=== PATIENT | female | born 1990 | race Caucasian/White ===

== ENCOUNTER 2017-03-26 06:34 | Day surgery (SDC) | payer OTHER ==
[2017-03-26 08:30] VITALS: BP 120/84; TEMP 98.3
[2017-03-26 09:35] VITALS: BMI 28.8
== END 2017-03-26 10:49 | disposition home or self-care (01) ==
LOC: L&D/OP 06:34
PROVIDERS: ATTEND Student in an Organized Health Care Education/Training Program
DX: O47.1 False labor at or after 37 completed weeks of gestation (principal); Z79.899 Other long term (current) drug therapy; Z3A.40 40 weeks gestation of pregnancy

== ENCOUNTER 2017-03-26 20:07 | Inpatient (IN) | payer OTHER ==
[2017-03-26 20:47] VITALS: BMI 28.8
[2017-03-26] MEDS ORDERED: LR / Pitocin 40 units/1000 ml 1,000 ML IV PRN (22:18)
[2017-03-26] MEDS ORDERED: Promethazine HCl 25 MG/ML VIAL IM PRN (22:18)
[2017-03-26] MEDS ORDERED: Ondansetron HCl/PF 4 MG/2 ML Vial IVP PRN (22:18)
[2017-03-26] MEDS ORDERED: Lidocaine 1% (PF) 30 ML VIAL SC PRN (22:18)
[2017-03-26] MEDS ORDERED: Misoprostol 200 MCG TAB PR PRN (22:18)
[2017-03-26] MEDS ORDERED: Lactated Ringer's 1,000 ML IV SCH (22:30)
[2017-03-26] MEDS ORDERED: Penicillin G Potassium 5 MILL.UNITS VIAL ONE (22:34)
[2017-03-26] MEDS ORDERED: Fentanyl 4 mcg/Marc 0.1% Cadd 100 ML ONE (22:43)
[2017-03-26 22:57] LABS: #Basophils 0.1 thou/uL (0.0-0.2); #Lymphocytes 1.2 thou/uL (1.20-3.40); #Monocytes 0.6 thou/uL (0.11-0.59); %Basophils 0.4 % (0.0-1.0); %Eosinophils 0.2 % (0.0-10.0); %Monocytes 3.8 % (0.0-10.0); Hematocrit 36.8 % (36.0-47.0); Mean Platelet Volume 9.4 fL (7.4-10.4); Red Blood Cell (RBC) Count 4.09 mill/uL (4.20-5.40); White Blood Cell (WBC) Count 14.9 thou/uL (4.8-10.8)
[2017-03-26] MEDS ORDERED: Dextrose 5%-Lactated Ringers 1,000 ML IV SCH (23:30)
--- NOTE | 2017-03-27 | PDOC.LDHP ---
Labor and Delivery H&P Chief complaint: contractions HPI: 26 yo @ 40.6wks by 1T US presents with contractions, without fluid loss , vaginal discharge, or bleeding. Pt was here this morning for contractions and an exam of /0. Current gestational age (weeks): 1 Due date: 03/20/17 Para: 0 Current complications: none Abnormal US findings: No Current medications: pre-syl vitamins Previous surgical history: none Allergies/Adverse Reactions: Allergies Allergy/AdvReac Type Severity Reaction Status Date / Time gluten Allergy Verified 03/26/17 08:28 No Known Drug Allergies Allergy Verified 03/26/17 08:28 Social history: none - Physical Exam Vital signs reviewed and normal: yes General: NAD Heart: RRR Lungs: nonlabored breathing Abdomen: NTTP Extremeties: no edema FHT: category 1, category 2, variable decelerations [place] contractions every: 7 minutes - Vaginal Exam cm dilated: 5 Effacement: 75% Station: 0 - OB Labs Blood type: A RH: positive HIV: negative RPR: negative HEPSAg: negative 1 hour GCT: negative GBS: positive Additional Labs: rubella immune gonorrhea negative chlamydia negative - Assessment L&D Assessment: term patient in labor - Plan Plan: admit to L&D, labor augmentation if indicated, anesthesia consult for pain management
[2017-03-27] MEDS ORDERED: Penicillin G 2.5 MILL.units 2.5 MILL.UNITS in Premix Bag 1 BAG IVPB SCH (01:00)
--- NOTE | 2017-03-27 02:43 | PDOC.LDPN ---
Labor & Delivery Progress Note - Subjective Subjective: comfortable - Objective Vital signs reviewed and normal: yes General: NAD, resting Uterine fundus: non tender Dilation: 6 Effacement: 90% Station: 1+ FHT: category 2 [place] contractions every: 4 minutes - Assessment (1) Active labor at term Code(s): [id number] - Current Visit: Yes Status: Acute Plan: continue plan of care
[2017-03-27] MEDS ORDERED: Lidocaine 1% (PF) 30 ML VIAL ONE (04:57)
[2017-03-27] MEDS ORDERED: LR / Pitocin 40 units/1000 ml 1,000 ML ONE (04:57)
[2017-03-27] MEDS ORDERED: Fentanyl 4 mcg/Marc 0.1% Cadd 100 ML ONE (04:58)
[2017-03-27] MEDS ORDERED: Misoprostol 200 MCG TAB ONE (05:55)
--- NOTE | 2017-03-27 06:44 | PDOC.OPDEL ---
OB Operative/Delivery Note Delivery Dr/Surgeon: Sharee Saenz MD, Rosangela Viera MD, Nga Garcia DO Pre-Delivery Diagnosis: other (Active labor at 40.6, Celiac Disease, Vitamin D deficiency, Anemia of , ASCUS pap) Procedure/Post Delivery Dx: spontaneous vaginal delivery Weeks gestation: 41 Anesthesia: epidural - Findings A Sex: female Weight: 2.779 kg - 5 min: 8 - 10 min: 9 - Additional Findings/Plan Placenta delivered: spontaneous Repaired Obstetrical Laceration: other (1st degree with left labial and vaginal sidewall extension) Estimated blood loss: 300 mL Compilations/Other Findings: 26 yo at 40.6 wks presented in active labor. Progressed without complications to complete on 03/27/17 at 0450. Viable female with MSAF delivered over an intact perineum at 0538 in OA position. No nuchal cord. Spontaneous cry. Pitocin was started for active management of 3rd stage. Placenta delivered spontaneously with assistance of manual traction. Complex 1st degree laceration noted and repaired with 2-[address] and 2-0 Vicryl on SH. EBL 300 mL. Fundus firm. Cervix and vagina free of other lacerations. Post delivery plan: routine recovery
[2017-03-27] MEDS ORDERED: Acetaminophen/Codeine 30-300mg Tablet PO PRN ×2 (06:52)
[2017-03-27] MEDS ORDERED: Bisacodyl 10 MG SUPP PR PRN (06:52)
[2017-03-27] MEDS ORDERED: Milk Of Magnesia 30 ML UDCUP PO PRN (06:52)
[2017-03-27] MEDS ORDERED: LR / Pitocin 40 units/1000 ml 1,000 ML IV SCH (07:00)
[2017-03-27] MEDS ORDERED: Ferrous Sulfate 325 MG TAB PO SCH (08:00)
[2017-03-27] MEDS ORDERED: diphenhydrAMINE HCl 50 MG/ML 1 ML VIAL IVP PRN (08:10)
[2017-03-27] MEDS ORDERED: Acetaminophen 325 MG TAB PO PRN (08:10)
[2017-03-27] MEDS ORDERED: Ondansetron HCl/PF 4 MG/2 ML Vial IVP PRN (08:10)
[2017-03-27] MEDS ORDERED: Naloxone HCl 0.4 mg/ml Vial IVP PRN ×2 (08:10)
[2017-03-27] MEDS ORDERED: Eucerin (Mineral Oil/Petrolatum,White) 30 gm Jar TOP PRN (08:10)
[2017-03-27] MEDS ORDERED: Promethazine HCl 25 MG/ML VIAL IM PRN (08:10)
[2017-03-27] MEDS ORDERED: Lactated Ringer's 500 ML IV PRN (08:10)
[2017-03-27] MEDS ORDERED: ePHEDrine/0.9% NaCl/PF SYRINGE 50 mg/10 ml SLOW IVP PRN (08:10)
[2017-03-27] MEDS ORDERED: Fentanyl 4mcg/Marcaine 0.1% Cassette 100 ML EPIDURAL SCH (08:15)
[2017-03-27] MEDS ORDERED: Communication Order-Pharmacy FS SCH (08:15)
[2017-03-27] MEDS: Docusate (Surfak) 240 MG CAP PO SCH ×2 (09:16→21:03)
[2017-03-27] MEDS: Prenatal Vitamin 1 TAB PO SCH (09:16)
[2017-03-27] MEDS: Ibuprofen 800 MG TAB PO SCH ×3 (09:16→17:47)
[2017-03-27] MEDS: Penicillin G Potassium 5 MILL.UNITS in Sodium Chloride 0.9% 100 ML IVPB SCH ×2 (09:35→09:44)
[2017-03-27] MEDS: HYDROcodone/Acetaminophen 5/325 mg Tablet PO PRN ×2 (13:11→23:41)
[2017-03-28 05:12] LABS: #Eosinphils 0.1 thou/uL (0.0-0.7); #Lymphocytes 2.7 thou/uL (1.20-3.40); #Monocytes 0.5 thou/uL (0.11-0.59); #Neutrophils 9.4 thou/uL (1.40-6.50); %Basophils 0.2 % (0.0-1.0); %Eosinophils 0.5 % (0.0-10.0); %Lymphocytes 21.6 % (21.0-51.0); %Monocytes 3.6 % (0.0-10.0); Hematocrit 24.8 % (36.0-47.0); Mean Platelet Volume 8.2 fL (7.4-10.4); Red Blood Cell (RBC) Count 2.71 mill/uL (4.20-5.40); White Blood Cell (WBC) Count 12.7 thou/uL (4.8-10.8)
[2017-03-28] MEDS: Ibuprofen 800 MG TAB PO SCH ×3 (05:49→21:11)
[2017-03-28] MEDS: HYDROcodone/Acetaminophen 5/325 mg Tablet PO PRN ×2 (08:19→22:47)
[2017-03-28] MEDS: Prenatal Vitamin 1 TAB PO SCH (08:19)
[2017-03-28] MEDS: Ferrous Sulfate 325 MG TAB PO SCH ×2 (08:19→18:21)
[2017-03-28] MEDS: Docusate (Surfak) 240 MG CAP PO SCH ×2 (08:19→21:10)
--- NOTE | 2017-03-28 10:10 | PDOC.PP ---
Post Progress Note Post Day #: 1 PO intake tolerated: yes Flatus: no Ambulation: yes Vital Signs (12 hours) Temp Pulse Resp BP 03/28/17 08:06 98.4 F 69 20 116/69 03/28/17 08:05 98.4 F 69 20 03/28/17 05:45 97.7 F 74 18 127/88 03/27/17 23:40 98.6 F 93 20 128/85 Weight Weight 76.204 kg - Physical Examination General: NAD Cardiovascular: no m/r/g, RRR Respiratory: clear to ausculation bilateral Abdominal: + bowel sounds, lochia (moderate), no distention, appropriately TTP Fundus firm & at: 2cm below umbilicus Extremities: negative homans (B) Skin: no rash Neurological: no gross focal deficits Psychiatric: normal affect Result Diagrams: 03/28/17 04:58 Additional Labs: Post Labs Blood Type A POSITIVE 03/26/17 21:59 Hep Bs Antigen Non-Reactive S/CO (NonReactive) 03/26/17 21:59 (1) Term delivered Code(s): O80 - ENCOUNTER FOR FULL-TERM UNCOMPLICATED DELIVERY Status: Acute Comment: 26 year old G1 at 41.0 weeks delivered via at 0538 on 03/27 a TSGA female. She was GBS positive - received 2 doses of penicillin 2nd degree perineal lac s/p repair EBL 300 -pain controlled with norco and ibuprofen -Hb dropped today to 8.3 - started iron supplementation -creative consultant saw her to help with breast feeding -continue routine post care -Likely d/c tomorrow <Nga Zendejas - Last Filed: 03/28/17 10:07> Vital Signs (12 hours) Temp Pulse Resp BP 03/28/17 08:06 98.4 F 69 20 116/69 03/28/17 08:05 98.4 F 69 20 03/28/17 05:45 97.7 F 74 18 127/88 Weight Weight 76.204 kg Result Diagrams: 03/28/17 04:58 Additional Labs: Post Labs Blood Type A POSITIVE 03/26/17 21:59 Hep Bs Antigen Non-Reactive S/CO (NonReactive) 03/26/17 21:59 <Sharee Saenz - Last Filed: 03/28/17 12:24> Attending Addendum - Attending Addendum I personally evaluated the patient and discussed the management with Dr. Zendejas I agree with the History, Examination, Assessment and Plan documented above with any addition or exceptions noted below. 26 yo female s/p at 41.0 wks complicated by GBS carrier status, MSAF, Celiac dz PPD#1 Patient doing well. Reports increased abdominal cramping overnight with improvement with use of [place]. improving. 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 Mother appears overwhelmed and tired today. Encouraged using staff to help with today so she could rest. Lochia moderate. Voiding well. Vaginal edema stable. Afebrile. VSS. Fundus firm below umbilicus. Deferred vaginal evaluation today -- patient . H/H = 8.3/24.8 Plan: Continue routine care. Encouraged assistance with staff and partner. Monitor pain control. Iron started for pp anemia. Monitor lochia. If persist will need to repeat H/H in AM to monitor need for infusion vs transfusion. Follow up vaginal laceration in AM. consult to continue to help with BF Unsure of contraception at this time. Will address in outpt setting. Michael <Sharee Saenz - Last Filed: 03/28/17 12:24>
[2017-03-28 22:08] VITALS: TEMP 98.2
[2017-03-29] MEDS: Ibuprofen 800 MG TAB PO SCH ×3 (06:46→16:20)
--- NOTE | 2017-03-29 07:02 | PDOC.PP ---
Post Progress Note Post Day #: 2 -: Patient doing well, pain controlled. PO intake tolerated: yes Flatus: yes Ambulation: yes Vital Signs (12 hours) Temp Pulse Resp BP Pulse Ox 03/28/17 21:40 98.2 F 82 20 127/78 97 Weight Weight 76.204 kg - Physical Examination General: NAD Cardiovascular: no m/r/g, RRR Respiratory: clear to ausculation bilateral Abdominal: + bowel sounds, lochia, no distention, appropriately TTP Fundus firm & at: 2 cm below the umbilicus Extremities: negative homans (B) Neurological: no gross focal deficits Psychiatric: normal affect Result Diagrams: 03/28/17 04:58 Additional Labs: Post Labs Blood Type A POSITIVE 03/26/17 21:59 Hep Bs Antigen Non-Reactive S/CO (NonReactive) 03/26/17 21:59 (1) Term delivered Code(s): O80 - ENCOUNTER FOR FULL-TERM UNCOMPLICATED DELIVERY Status: Acute Comment: 26 year old G1 at 41.0 weeks delivered via at 0538 on 03/27 a TSGA female. She was GBS positive - received 2 doses of penicillin 2nd degree perineal lac s/p repair EBL 300 -pain controlled with norco and ibuprofen -Hb dropped to 8.3 post-- started iron supplementation -[employer] security consultant saw her to help with breast feeding - reports improvement -continue routine post care -d/c today <Nga Zendejas - Last Filed: 03/29/17 07:00> Vital Signs (12 hours) Temp Pulse Resp BP 03/29/17 08:20 98.2 F 79 18 130/87 Weight Weight 76.204 kg Result Diagrams: 03/28/17 04:58 Additional Labs: Post Labs Blood Type A POSITIVE 03/26/17 21:59 Hep Bs Antigen Non-Reactive S/CO (NonReactive) 03/26/17 21:59 <Sharee Saenz - Last Filed: 03/29/17 11:00> Attending Addendum - Attending Addendum I personally evaluated the patient and discussed the management with Dr. Zendejas I agree with the History, Examination, Assessment and Plan documented above with any addition or exceptions noted below. 26 yo female s/p at 41.0 wks complicated by GBS carrier status, MSAF, Celiac dz PPD#2 Patient doing well. improving. with ankyloglosis but reports good latch. Lochia mild. Voiding well. Vaginal edema resolved. Pain controlled. Afebrile. VSS. Fundus firm below umbilicus. Vaginal edema resolved. Laceration healing well. No signs of infection. H/H = 8.3/24.8 Plan: Stable. Doing well. Okay for d/c today. Iron started for pp anemia. Laceration improving. Unsure of contraception at this time. Will address in outpt setting. Michael <Shaere Saenz - Last Filed: 03/29/17 11:00>
[2017-03-29] MEDS: Ferrous Sulfate 325 MG TAB PO SCH ×2 (08:28→17:56)
[2017-03-29] MEDS: Prenatal Vitamin 1 TAB PO SCH (08:28)
[2017-03-29] MEDS: Docusate (Surfak) 240 MG CAP PO SCH (08:28)
[2017-03-29] MEDS: HYDROcodone/Acetaminophen 5/325 mg Tablet PO PRN ×2 (08:30→16:20)
[2017-03-29 09:28] VITALS: BP 130/87
== END 2017-03-29 19:20 | disposition home or self-care (01) | DRG 775 ==
LOC: L&D/OP 20:07 → L&D 03-27 04:26 → 3SW 03-27 09:16
PROVIDERS: ADMIT Student in an Organized Health Care Education/Training Program; ATTEND Student in an Organized Health Care Education/Training Program
DX: O99.824 Streptococcus B carrier state complicating childbirth (principal); K90.0 Celiac disease; O70.0 First degree perineal laceration during delivery; Z3A.40 40 weeks gestation of pregnancy; Z37.0 Single live birth; O99.613 Diseases of the digestive system complicating pregnancy, third trimester; O99.02 Anemia complicating childbirth; O99.283 Endocrine, nutritional and metabolic diseases complicating pregnancy, third trimester; E55.9 Vitamin D deficiency, unspecified
CPT/HCPCS: 36415; 85025; 86780; 87340; J2001; J2540

== ENCOUNTER 2022-05-19 09:09 | Outpatient (CLI) | payer OTHER | END 2022-05-19 09:10 | disposition home or self-care (01) | LOC: DTY/OP 09:09 | PROVIDERS: ATTEND Family Medicine | DX: Z34.80 Encounter for supervision of other normal pregnancy, unspecified trimester (principal); K90.0 Celiac disease | CPT/HCPCS: 97802 ==